=== PATIENT | male | born 1955 | race Caucasian/White ===

== ENCOUNTER 2017-04-08 13:02 | Emergency (ER) | payer MEDICAID ==
[~2017-04-08] VITALS: Ht 165.1 cm; Wt 73.0 kg
[~2017-04-08 13:02] MED LIST: LEVPEN SQ; [UNRECOGNIZED DRUG - CODE] PO
[2017-04-08] MEDS ORDERED: BENAZEPRIL (13:21)
[2017-04-08] MEDS ORDERED: DOCU-150 PO (13:21)
[2017-04-08] MEDS ORDERED: HYDROCODONE (13:21)
[2017-04-08] MEDS ORDERED: KETOROLAC 60MG/2ML VIAL IM ONE (16:15)
[2017-04-08 17:10] VITALS: BP 116/62
== END 2017-04-08 17:41 | disposition home or self-care (01) ==
LOC: ER 13:02
DX: Z48.00 Encounter for change or removal of nonsurgical wound dressing (principal); M79.602 Pain in left arm; I10 Essential (primary) hypertension; E11.9 Type 2 diabetes mellitus without complications; Z79.4 Long term (current) use of insulin
CPT/HCPCS: 82962; 96372; 99283; J1885

== ENCOUNTER 2017-08-04 10:51 | Emergency (ER) | payer MEDICAID ==
[~2017-08-04] VITALS: Ht 165.1 cm; Wt 85.0 kg
[~2017-08-04 10:51] MED LIST changes: +BENAZEPRIL; +DOCU-150 PO; +HYDROCODONE
[2017-08-04] MEDS ORDERED: TETRACAINE 0.5% OPHTH DROPS 4ML BOTHEYE ONE (11:45)
[2017-08-04] MEDS ORDERED: FLUORESCEIN SODIUM 1MG/STRIP BOTHEYE ONE (11:45)
[2017-08-04 13:17] VITALS: BP 110/56
== END 2017-08-04 13:27 | disposition home or self-care (01) ==
LOC: ER 11:36
DX: S05.02XA Injury of conjunctiva and corneal abrasion without foreign body, left eye, initial encounter (principal); S05.01XA Injury of conjunctiva and corneal abrasion without foreign body, right eye, initial encounter; H11.009 Unspecified pterygium of unspecified eye; E78.00 Pure hypercholesterolemia, unspecified; I10 Essential (primary) hypertension; E11.9 Type 2 diabetes mellitus without complications; Z79.4 Long term (current) use of insulin; X58.XXXA Exposure to other specified factors, initial encounter; Y93.89 Activity, other specified; Y92.89 Other specified places as the place of occurrence of the external cause; Y99.8 Other external cause status
CPT/HCPCS: 99283

== ENCOUNTER 2019-02-28 09:43 | Emergency (ER) | payer MEDICAID ==
[~2019-02-28] VITALS: Ht 162.6 cm; Wt 73.0 kg
[2019-02-28 09:45] VITALS: BP 132/69
[2019-02-28] MEDS ORDERED: FLUORESCEIN SODIUM 1MG/STRIP OP ONE (11:30)
[2019-02-28] MEDS ORDERED: TETRACAINE 0.5% OPHTH DROPS 4ML OP ONE (11:30)
[2019-02-28] MEDS ORDERED: BALANCED SALT IRRIG SOLN 15ML IO ONE (11:30)
== END 2019-02-28 13:54 | disposition home or self-care (01) ==
LOC: ER 09:43
DX: H10.33 Unspecified acute conjunctivitis, bilateral (principal); E11.9 Type 2 diabetes mellitus without complications; I10 Essential (primary) hypertension
CPT/HCPCS: 99284

== ENCOUNTER 2019-06-03 15:48 | Emergency (ER) | payer MEDICAID ==
[~2019-06-03] VITALS: Ht 162.6 cm; Wt 69.0 kg
[2019-06-03 18:21] VITALS: BP 138/77
[2019-06-03] MEDS ORDERED: ACETAMINOPHEN 325MG TABLET PO ONE (18:45)
[2019-06-03] MEDS ORDERED: FLUORESCEIN SODIUM 1MG/STRIP OP ONE (18:45)
[2019-06-03] MEDS ORDERED: TETRACAINE 0.5% OPHTH DROPS 4ML OP ONE (18:45)
== END 2019-06-03 21:36 | disposition home or self-care (01) ==
LOC: ER 15:48
DX: T15.02XA Foreign body in cornea, left eye, initial encounter (principal); E11.9 Type 2 diabetes mellitus without complications; E78.00 Pure hypercholesterolemia, unspecified; I10 Essential (primary) hypertension; Z79.899 Other long term (current) drug therapy; Z79.4 Long term (current) use of insulin; X58.XXXA Exposure to other specified factors, initial encounter; Y93.89 Activity, other specified; Y92.89 Other specified places as the place of occurrence of the external cause; Y99.8 Other external cause status
CPT/HCPCS: 99284